=== PATIENT | male | born 1990 | race Caucasian/White ===

== ENCOUNTER 2020-04-14 18:58 | Emergency (ER) | payer OTHER ==
[2020-04-14 19:16] VITALS: RESP 16; TEMP 98
[2020-04-14] MEDS ORDERED: SODIUM CHLORIDE 0.9% 1,000 ML IV ONE (19:52)
--- NOTE | 2020-04-14 19:54 | ED ---
General Adult HPI - General Chief complaint: Recheck/Abnormal Lab/Rx Stated complaint: ETOH Time Seen by Provider: 04/14/20 19:12 Source: patient, EMS, RN notes reviewed, old records reviewed Mode of arrival: EMS Limitations: no limitations - History of Present Illness Initial comments: 30-year-old male sent from [facility] for evaluation of abdominal pain and vomiting. Patient has presented to [facility] for intake today for alcohol abuse. He admits to drinking 1/5 of vodka yesterday evening and had several drinksthis morning. He was found to have an alcohol level of 320. Apparently he had 2 episodes of vomiting although he is no longer complaining of nausea vomiting or abdominal pain. He does not appear intoxicated at the time my init ial evaluation. No depression, no suicidal or homicidal ideation. - Related Data Allergies Allergy/AdvReac Type Severity Reaction Status Date / Time Penicillins Allergy Rash/Hives Verified 04/14/20 19:17 Review of Systems ROS Statement: Those systems with pertinent positive or pertinent negative responses have been documented in the HPI. ROS Other: All systems not noted in ROS Statement are negative. Past Medical History Additional Past Medical History / Comment(s): pancreatitis 2011 History of Any Multi-Drug Resistant Organisms: None Reported Past Surgical History: No Surgical Hx Reported Smoking Status: Light tobacco smoker Past Alcohol Use History: Abuse Past Drug Use History: Marijuana General Exam Limitations: no limitations General appearance: alert, in no apparent distress Head exam: Present: atraumatic, normocephalic Eye exam: Present: normal appearance, PERRL ENT exam: Present: mucous membranes dry Neck exam: Present: normal inspection. Absent: tenderness, meningismus Respiratory exam: Present: normal lung sounds bilaterally. Absent: respiratory distress, wheezes Cardiovascular Exam: Present: regular rate, normal rhythm GI/Abdominal exam: Present: soft. Absent: distended, tenderness, guarding, rebound Extremities exam: Present: normal inspection, normal capillary refill Back exam: Present: normal inspection Neurological exam: Present: alert, oriented X3, CN II-XII intact. Absent: motor sensory deficit Psychiatric exam: Present: normal affect, normal mood Skin exam: Present: warm, dry, intact. Absent: cyanosis, diaphoretic Course Vital Signs 04/14/20 19:12 Temperature 98.0 F Pulse Rate 116 H Respiratory 16 Rate Blood Pressure 138/101 O2 Sat by Pulse 96 Oximetry Medical Decision Making - Medical Decision Making 30-year-old male with alcohol intoxication, requesting rehabilitation. He has a serum alcohol level of 300. He has a transaminitis consistent with alcoholic hepatitis. He has a negative lipase. He has a normal white blood cell count, hemoglobin is consistent with mild anemia. Patient eager to begin rehab. He will be discharged to the rehabilitation Center. Although his alcohol is 300 he is clinically sober. - Lab Data Result diagrams: 04/14/20 20:04 04/14/20 20:04 Lab Results 04/14/20 04/14/20 Range/Units 20:04 20:04 WBC 4.5 (3.8-10.6) k/uL RBC 5.43 (4.30-5.90) m/uL Hgb 12.4 L (13.0-17.5) gm/dL Hct 41.0 (39.0-53.0) % MCV 75.5 L (80.0-100.0) fL MCH 22.9 L (25.0-35.0) pg MCHC 30.4 L (31.0-37.0) g/dL RDW 21.1 H (11.5-15.5) % Plt Count 159 (150-450) k/uL Neutrophils % 60 % Lymphocytes % 28 % Monocytes % 5 % Eosinophils % 3 % Basophils % 1 % Neutrophils # 2.7 (1.3-7.7) k/uL Lymphocytes # 1.3 (1.0-4.8) k/uL Monocytes # 0.2 (0-1.0) k/uL Eosinophils # 0.2 (0-0.7) k/uL Basophils # 0.0 (0-0.2) k/uL Hypochromasia Slight Anisocytosis Moderate Microcytosis Moderate Sodium 142 (137-145) mmol/L Potassium 4.1 (3.5-5.1) mmol/L Chloride 105 (98-107) mmol/L Carbon Dioxide 22 (22-30) mmol/L Anion Gap 15 mmol/L BUN 10 (9-20) mg/dL Creatinine 0.86 (0.66-1.25) mg/dL Est GFR (CKD-EPI)AfAm >90 (>60 ml/min/1.73 sqM) Est GFR (CKD-EPI)NonAf >90 (>60 ml/min/1.73 sqM) Glucose 88 (74-99) mg/dL Calcium 9.1 (8.4-10.2) mg/dL Total Bilirubin 0.5 (0.2-1.3) mg/dL AST 166 H (17-59) U/L ALT 98 H (4-49) U/L Alkaline Phosphatase 54 (38-126) U/L Total Protein 7.9 (6.3-8.2) g/dL Albumin 4.7 (3.5-5.0) g/dL Amylase 48 (30-110) U/L Lipase 219 (23-300) U/L Serum Alcohol 301 H* mg/dL Disposition Clinical Impression: Vomiting, Alcohol abuse Disposition: OTHER INSTITUTION NOT DEFINED Condition: Fair Instructions (If sedation given, give patient instructions): Alcohol Intoxication (ED), Acute Nausea and Vomiting (ED) Is patient prescribed a controlled substance at d/c from ED?: No Referrals: Linda Zee DO [Primary Care Provider] - 1-2 days Time of Disposition: 20:43 - Out of Hospital Transfer - Req. Specs Out of Hospital Transfer - Requested Specifics: Other Non-Acute (discharged to [facility])
[2020-04-14 20:11] LABS: Anisocytosis Moderate; Basophils % (A) 1 %; Eosinophils # (A) 0.2 k/uL (0-0.7); Eosinophils % (A) 3 %; HGB 12.4 gm/dL (13.0-17.5); Hypochromasia Slight; Lymphocytes # (A) 1.3 k/uL (1.0-4.8); Lymphocytes % (A) 28 %; MCH 22.9 pg (25.0-35.0); MCHC 30.4 g/dL (31.0-37.0); MCV 75.5 fL (80.0-100.0); Mean Platelet Volume 6.9; Microcytosis Moderate; Monocytes # (A) 0.2 k/uL (0-1.0); Monocytes % (A) 5 %; Neutrophils # (A) 2.7 k/uL (1.3-7.7); Neutrophils % (A) 60 %; Platelet Count 159 k/uL (150-450); RBC 5.43 m/uL (4.30-5.90); RDW 21.1 % (11.5-15.5); WBC 4.5 k/uL (3.8-10.6)
[2020-04-14] MEDS ORDERED: ONDANSETRON 4 MG/2 ML VIAL IVP STA (20:11)
--- NOTE | 2020-04-14 20:18 | XR ---
EXAMINATION TYPE: XR KUB DATE OF EXAM: 04/14/2020 COMPARISON: NONE HISTORY: Abdominal pain TECHNIQUE: FINDINGS: 2 views upright show no sign of intestinal obstruction or pneumoperitoneum. Fecal pattern i s normal. Lung bases are clear. There are no pathologic calcifications over the kidneys. IMPRESSION: Nonacute abdomen.
[2020-04-14 20:21] LABS: ALT 98 U/L (4-49); AST 166 U/L (17-59); African American GFR (CKD) >90 (>60 ml/min/1.73 sqM); Albumin 4.7 g/dL (3.5-5.0); Alkaline Phosphatase 54 U/L (38-126); Amylase 48 U/L (30-110); Anion Gap 15 mmol/L; Blood Urea Nitrogen 10 mg/dL (9-20); Calcium 9.1 mg/dL (8.4-10.2); Carbon Dioxide 22 mmol/L (22-30); Chloride 105 mmol/L (98-107); Glucose 88 mg/dL (74-99); Lipase 219 U/L (23-300); Non-African American GFR(CKD) >90 (>60 ml/min/1.73 sqM); Potassium 4.1 mmol/L (3.5-5.1); Sodium 142 mmol/L (137-145); Total Bilirubin 0.5 mg/dL (0.2-1.3); Total Protein 7.9 g/dL (6.3-8.2)
[2020-04-14 20:35] LABS: Alcohol 301 mg/dL
[2020-04-14 21:05] VITALS: BP 129/87; PULSE 97
== END 2020-04-14 21:05 | disposition other institution (70) ==
LOC: EC 18:58
DX: F10.129 Alcohol abuse with intoxication, unspecified (principal); R74.01 Elevation of levels of liver transaminase levels; R11.10 Vomiting, unspecified; Y90.8 Blood alcohol level of 240 mg/100 ml or more; F17.210 Nicotine dependence, cigarettes, uncomplicated; Z88.0 Allergy status to penicillin
CPT/HCPCS: 36415; 80053; 82150; 83690; 85025; 74018; 99285; 96374; 96361; G0480; J2405; 80320

== ENCOUNTER 2020-04-17 06:03 | Observation (INO) | payer OTHER ==
[2020-04-17] MEDS ORDERED: LORazepam 2 MG/ML INJ IV PRN ×3 (06:07)
[2020-04-17] MEDS ORDERED: THIAMINE 100 MG/ML 2 ML VIAL IM ONE (06:15)
--- NOTE | 2020-04-17 06:42 | ED ---
Alcohol HPI - General Chief Complaint: Alcohol Stated Complaint: Hallucinations Time Seen by Provider: 04/17/20 06:07 Source: patient, EMS Mode of arrival: EMS Limitations: no limitations - History of Present Illness Initial Comments: 30yo male presenting for alcohol withdrawals. Patient states that he has been having withdrawals since he entered [facility]. He states that he has been seeing and hearing things intermittent that he believe are there. He was holding his blanket like a baby stating it needed to be cared for. he states he can see the blanket breathing. Staff noted patient making comments about voices and things that were not present. Patient states he has not had hallucinations to his knowledge in the past but has struggled with alcohol abuse most of his life. 7th time in rehab center. Patient/staff denies seizures, he admits to a dull headache and mild shaking. Patient very pleasant and does not appear in distress on arrival. - Related Data Home Medications Medication Instructions Recorded Confirmed Acetaminophen [Tylenol 8 Hour] 650 mg PO Q4H MDD 6 tabs 04/17/20 04/17/20 Gabriele/Mag+Zinc 334mg/134mg/5mg 2 tab PO TID PRN 04/17/20 04/17/20 Chlorpheniramine Maleate 4 mg PO Q4H PRN MDD 4 tabs 04/17/20 04/17/20 [Chlor-Trimeton] Citalopram Hydrobromide [CeleXA] 20 mg PO DAILY@0600 04/17/20 04/17/20 Ibuprofen [Motrin] 600 mg PO Q6HR PRN 04/17/20 04/17/20 LORazepam [Ativan] See Taper PO DIRECTED PRN 04/17/20 04/17/20 Ondansetron HCl [Zofran] 8 mg PO Q6H PRN 04/17/20 04/17/20 Tigan 200 mg IM Q6H PRN 04/17/20 04/17/20 Trimethobenzamide [Tigan] 300 mg PO Q6H PRN 04/17/20 04/17/20 Trimethobenzamide [Tigan] 300 mg RECTAL Q6H PRN 04/17/20 04/17/20 Zofran 2mg/Ml 4 mg IM Q6H PRN 04/17/20 04/17/20 buPROPion HCL [Wellbutrin SR] 200 mg PO BID@0600,1730 04/17/20 04/17/20 traZODone HCL [Desyrel] 100 mg PO HS 04/17/20 04/17/20 Allergies Allergy/AdvReac Type Severity Reaction Status Date / Time Penicillins Allergy Rash/Hives Verified 04/17/20 07:50 Review of Systems ROS Statement: Those systems with pertinent positive or pertinent negative responses have been documented in the HPI. ROS Other: All systems not noted in ROS Statement are negative. Past Medical History Additional Past Medical History / Comment(s): pancreatitis 2010 History of Any Multi-Drug Resistant Organisms: None Reported Past Surgical History: No Surgical Hx Reported Past Psychological History: ADD/ADHD, Anxiety, Depression Smoking Status: Light tobacco smoker Past Alcohol Use History: Abuse Past Drug Use History: Marijuana General Exam - General Exam Comments Initial Comments: General: The patient is awake and alert, in no distress Eye: Pupils are equal, round and reactive to light, extra-ocular movements are intact. No appreciated nystagmus. There is normal conjunctiva bilaterally. No signs of icterus. Ears, nose, mouth and throat: There are moist mucous membranes and no oral lesions. Neck: The neck is supple, there is no tenderness or JVD. Cardiovascular: There is a regular rate and rhythm. No murmur, rub or gallop is appreciated. Respiratory: Lungs are clear to auscultation, respirations are non-labored, breath sounds are equal. No wheezes, stridor, rales, or rhonchi. Gastrointestinal: Soft, non-distended, non-tender abdomen without masses or organomegaly noted. There is no rebound or guarding present. Musculoskeletal: Normal ROM, no tenderness. Strength 5/5. Sensation intact. Radial pulses equal bilaterally 2+. Neurological: A&O x 3. CN II-XII intact, There are no obvious motor or sensory deficits. Coordination appears grossly intact. Speech is normal. tremor of hands b/l mild. No appreciated ataxia. Skin: Skin is warm and dry and no rashes or lesions are noted. Psychiatric: Cooperative, very pleasant- he does state that the blanket is breathing and has eyes. Limitations: no limitations Course Vital Signs 04/17/20 04/17/20 04/17/20 06:05 07:09 08:27 Temperature 98.8 F 98.1 F 98.1 F Pulse Rate 95 92 89 Respiratory 18 14 14 Rate Blood Pressure 143/93 131/89 130/89 O2 Sat by Pulse 100 100 100 Oximetry 04/17/20 09:03 Temperature 97.9 F Pulse Rate 89 Respiratory 14 Rate Blood Pressure 139/89 O2 Sat by Pulse 100 Oximetry Medical Decision Making - Medical Decision Making 30yo with hx ETOH abuse. No ataxia, nystagmus on exam there are tremors, headache, nausea. Patient last drink 36 hours ago +. Patient case discussed [facility] attending who recommended admission on [facility] for monitoring. - Lab Data Result diagrams: 04/17/20 06:33 04/17/20 06:33 Lab Results 04/17/20 04/17/20 04/17/20 Range/Units 06:33 06:33 06:33 WBC 3.9 (3.8-10.6) k/uL RBC 4.49 (4.30-5.90) m/uL Hgb 11.0 L (13.0-17.5) gm/dL Hct 34.9 L (39.0-53.0) % MCV 77.8 L (80.0-100.0) fL MCH 24.4 L (25.0-35.0) pg MCHC 31.4 (31.0-37.0) g/dL RDW 21.2 H (11.5-15.5) % Plt Count 139 L (150-450) k/uL MPV 8.2 Neutrophils % 59 % Lymphocytes % 27 % Monocytes % 7 % Eosinophils % 4 % Basophils % 0 % Neutrophils # 2.3 (1.3-7.7) k/uL Lymphocytes # 1.1 (1.0-4.8) k/uL Monocytes # 0.3 (0-1.0) k/uL Eosinophils # 0.1 (0-0.7) k/uL Basophils # 0.0 (0-0.2) k/uL Anisocytosis Moderate Microcytosis Moderate Sodium 137 (137-145) mmol/L Potassium 3.3 L (3.5-5.1) mmol/L Chloride 100 (98-107) mmol/L Carbon Dioxide 27 (22-30) mmol/L Anion Gap 10 mmol/L BUN 6 L (9-20) mg/dL Creatinine 1.02 (0.66-1.25) mg/dL Est GFR (CKD-EPI)AfAm >90 (>60 ml/min/1.73 sqM) Est GFR (CKD-EPI)NonAf >90 (>60 ml/min/1.73 sqM) Glucose 89 (74-99) mg/dL Calcium 9.4 (8.4-10.2) mg/dL Magnesium (1.6-2.3) mg/dL AST 74 H (17-59) U/L ALT 67 H (4-49) U/L Urine Color Colorless Urine Appearance Clear (Clear) Urine pH 7.0 (5.0-8.0) Ur Specific Mck[place] 1.002 (1.001-1.035) Urine Protein Negative (Negative) Urine Glucose (UA) Negative (Negative) Urine Ketones Negative (Negative) Urine Blood Negative (Negative) Urine Nitrite Negative (Negative) Urine Bilirubin Negative (Negative) Urine Urobilinogen <2.0 (<2.0) mg/dL Ur Leukocyte Esterase Negative (Negative) Urine Opiates Screen Not Detected (NotDetected) Ur Oxycodone Screen Not Detected (NotDetected) Urine Methadone Screen Not Detected (NotDetected) Ur Propoxyphene Screen Not Detected (NotDetected) Ur Barbiturates Screen Not Detected (NotDetected) U Tricyclic Antidepress Not Detected (NotDetected) Ur Phencyclidine Scrn Not Detected (NotDetected) Ur Amphetamines Screen Not Detected (NotDetected) U Methamphetamines Scrn Not Detected (NotDetected) U Benzodiazepines Scrn Detected H (NotDetected) Urine Cocaine Screen Not Detected (NotDetected) U Marijuana (THC) Screen Not Detected (NotDetected) Serum Alcohol <10 mg/dL 04/17/20 Range/Units 06:33 WBC (3.8-10.6) k/uL RBC (4.30-5.90) m/uL Hgb (13.0-17.5) gm/dL Hct (39.0-53.0) % MCV (80.0-100.0) fL MCH (25.0-35.0) pg MCHC (31.0-37.0) g/dL RDW (11.5-15.5) % Plt Count (150-450) k/uL MPV Neutrophils % % Lymphocytes % % Monocytes % % Eosinophils % % Basophils % % Neutrophils # (1.3-7.7) k/uL Lymphocytes # (1.0-4.8) k/uL Monocytes # (0-1.0) k/uL Eosinophils # (0-0.7) k/uL Basophils # (0-0.2) k/uL Anisocytosis Microcytosis Sodium (137-145) mmol/L Potassium (3.5-5.1) mmol/L Chloride (98-107) mmol/L Carbon Dioxide (22-30) mmol/L Anion Gap mmol/L BUN (9-20) mg/dL Creatinine (0.66-1.25) mg/dL Est GFR (CKD-EPI)AfAm (>60 ml/min/1.73 sqM) Est GFR (CKD-EPI)NonAf (>60 ml/min/1.73 sqM) Glucose (74-99) mg/dL Calcium (8.4-10.2) mg/dL Magnesium 1.8 (1.6-2.3) mg/dL AST (17-59) U/L ALT (4-49) U/L Urine Color Urine Appearance (Clear) Urine pH (5.0-8.0) Ur Specific Mck[place] (1.001-1.035) Urine Protein (Negative) Urine Glucose (UA) (Negative) Urine Ketones (Negative) Urine Blood (Negative) Urine Nitrite (Negative) Urine Bilirubin (Negative) Urine Urobilinogen (<2.0) mg/dL Ur Leukocyte Esterase (Negative) Urine Opiates Screen (NotDetected) Ur Oxycodone Screen (NotDetected) Urine Methadone Screen (NotDetected) Ur Propoxyphene Screen (NotDetected) Ur Barbiturates Screen (NotDetected) U Tricyclic Antidepress (NotDetected) Ur Phencyclidine Scrn (NotDetected) Ur Amphetamines Screen (NotDetected) U Methamphetamines Scrn (NotDetected) U Benzodiazepines Scrn (NotDetected) Urine Cocaine Screen (NotDetected) U Marijuana (THC) Screen (NotDetected) Serum Alcohol mg/dL Disposition Clinical Impression: Hallucinations due to alcohol Disposition: ADMITTED IP TO THIS HOSP Condition: Stable Is patient prescribed a controlled substance at d/c from ED?: No Referrals: Linda Zee DO [Primary Care Provider] - 1-2 days Time of Disposition: 08:34 Decision to Admit Reason: Admit from EC Decision Date: 04/17/20 Decision Time: 08:34
[2020-04-17 07:02] LABS: Anisocytosis Moderate; Basophils % (A) 0 %; Eosinophils # (A) 0.1 k/uL (0-0.7); Eosinophils % (A) 4 %; HCT 34.9 % (39.0-53.0); Lymphocytes # (A) 1.1 k/uL (1.0-4.8); Lymphocytes % (A) 27 %; MCH 24.4 pg (25.0-35.0); MCHC 31.4 g/dL (31.0-37.0); MCV 77.8 fL (80.0-100.0); Mean Platelet Volume 8.2; Microcytosis Moderate; Monocytes # (A) 0.3 k/uL (0-1.0); Monocytes % (A) 7 %; Neutrophils # (A) 2.3 k/uL (1.3-7.7); Neutrophils % (A) 59 %; Platelet Count 139 k/uL (150-450); RBC 4.49 m/uL (4.30-5.90); RDW 21.2 % (11.5-15.5); WBC 3.9 k/uL (3.8-10.6)
[2020-04-17 07:17] LABS: Appearance,Urine Clear (Clear); Bilirubin,Urine Negative (Negative); Blood,Urine Negative (Negative); Color,Urine Colorless; Glucose,Urine (UA) Negative (Negative); Ketones,Urine Negative (Negative); Leukocyte Esterase,Urine Negative (Negative); Nitrite,Urine Negative (Negative); Protein,Urine Negative (Negative); Specific Gravity,Urine 1.002 (1.001-1.035); Urobilinogen,Urine <2.0 mg/dL (<2.0)
[2020-04-17 07:32] LABS: ALT 67 U/L (4-49); AST 74 U/L (17-59); African American GFR (CKD) >90 (>60 ml/min/1.73 sqM); Alcohol <10 mg/dL; Anion Gap 10 mmol/L; Blood Urea Nitrogen 6 mg/dL (9-20); Calcium 9.4 mg/dL (8.4-10.2); Carbon Dioxide 27 mmol/L (22-30); Chloride 100 mmol/L (98-107); Glucose 89 mg/dL (74-99); Non-African American GFR(CKD) >90 (>60 ml/min/1.73 sqM); Potassium 3.3 mmol/L (3.5-5.1); Sodium 137 mmol/L (137-145)
[2020-04-17 07:52] LABS: Amphetamine Screen,Urine Not Detected (NotDetected); Barbiturate Screen,Urine Not Detected (NotDetected); Benzodiazepines Screen,Urine Detected (NotDetected); Cocaine Screen,Urine Not Detected (NotDetected); Methadone Screen, Urine Not Detected (NotDetected); Opiate Screen,Urine Not Detected (NotDetected); Oxycodone Screen, Urine Not Detected (NotDetected); Phencyclidine Screen,Urine Not Detected (NotDetected); Tricyclic Antidepressant,Urine Not Detected (NotDetected); Urn Cannabinoid Scrn Not Detected (NotDetected)
[2020-04-17] MEDS ORDERED: NALOXONE 0.4 MG/ML 1 ML VIAL IV PRN (08:33)
[2020-04-17] MEDS ORDERED: NICOTINE 14MG/24HR PATCH TRANSDERM STA (08:35)
[2020-04-17] MEDS: SODIUM CHLORIDE 0.9% 1,000 ML IV SCH (08:59)
[2020-04-17] MEDS ORDERED: POTASSIUM CHLORIDE ER 20 MEQ TAB.ER PO STA (11:22)
[2020-04-17] MEDS ORDERED: MELATONIN 3 MG TABLET PO PRN (14:20)
[2020-04-17] MEDS ORDERED: ACETAMINOPHEN TAB 325 MG TAB PO PRN (14:20)
[2020-04-17] MEDS ORDERED: ONDANSETRON 4 MG/2 ML VIAL IVP PRN (14:20)
[2020-04-17] MEDS ORDERED: NICOTINE POLACRILEX 2 MG GUM BUCCAL PRN (15:34)
--- NOTE | 2020-04-17 15:37 | P.HPIM ---
History of Present Illness H&P Date: 04/17/20 Chief Complaint: hallucinations Patient is a 30-year-old male with history of alcohol abuse consuming approximately one time per day, mental health disorder, and prior pancreatitis who was brought into the hospital from [facility] secondary to hallucinations. In the ER he underwent an extensive evaluation. On arrival his vital signs were within normal limits. Laboratory analysis showed hemoglobin 11, platelets 139, potassium 3.3, AST 74, ALT 67, total bilirubin 0.7. Urine showed screen was positive for benzodiazepines. There is concern for his hallucinations being related to alcohol withdrawal and he was subsequently placed in observation. Patient seen and examined in the ER. He reports that he was brought here from [facility] due to hallucinations. I asked him to explain when he was seen in hearing and he refuses to do so saying "it is so much" stuff, he would never believe it. He denies any thoughts to harm himself or others. He denies any thoughts of suicide. He reports that his last drink was approximately 4 days ago. He states he was drinking 1 pint daily. He has been in rehab multiple times. He states that he is having less hallucinations today. He believes his hallucinations are due to whatever medication and giving him at [facility]. He denies any chest pain, shortness of breath, tremors, fevers. He thinks he is in [facility] on the 50th floor and that it is 2020. Review of Systems Pertinent positives and negatives as discussed in HPI, a complete review of systems was performed and all other systems are negative. Past Medical History Additional Past Medical History / Comment(s): pancreatitis 2010 History of Any Multi-Drug Resistant Organisms: None Reported Past Surgical History: No Surgical Hx Reported Past Psychological History: ADD/ADHD, Anxiety, Depression Smoking Status: Light tobacco smoker, Vaper Past Alcohol Use History: Abuse Past Drug Use History: Marijuana - Past Family History Mother Family Medical History: No Reported History Medications and Allergies Home Medications Medication Instructions Recorded Confirmed Type Acetaminophen [Tylenol 8 Hour] 650 mg PO Q4H MDD 6 tabs 04/17/20 04/17/20 History Gabriele/Mag+Zinc 334mg/134mg/5mg 2 tab PO TID PRN 04/17/20 04/17/20 History Chlorpheniramine Maleate 4 mg PO Q4H PRN MDD 4 tabs 04/17/20 04/17/20 History [Chlor-Trimeton] Citalopram Hydrobromide [CeleXA] 20 mg PO DAILY@0600 04/17/20 04/17/20 History Ibuprofen [Motrin] 600 mg PO Q6HR PRN 04/17/20 04/17/20 History LORazepam [Ativan] See Taper PO DIRECTED PRN 04/17/20 04/17/20 History Ondansetron HCl [Zofran] 8 mg PO Q6H PRN 04/17/20 04/17/20 History Tigan 200 mg IM Q6H PRN 04/17/20 04/17/20 History Trimethobenzamide [Tigan] 300 mg PO Q6H PRN 04/17/20 04/17/20 History Trimethobenzamide [Tigan] 300 mg RECTAL Q6H PRN 04/17/20 04/17/20 History Zofran 2mg/Ml 4 mg IM Q6H PRN 04/17/20 04/17/20 History buPROPion HCL [Wellbutrin SR] 200 mg PO BID@0600,1730 04/17/20 04/17/20 History traZODone HCL [Desyrel] 100 mg PO HS 04/17/20 04/17/20 History Allergies Allergy/AdvReac Type Severity Reaction Status Date / Time Penicillins Allergy Rash/Hives Verified 04/17/20 07:50 Physical Exam Osteopathic Statement: *. No significant issues noted on an osteopathic structural exam other than those noted in the History and Physical/Consult. Vitals: Vital Signs Temp Pulse Resp BP Pulse Ox 04/17/20 14:05 97.9 F 88 14 148/91 100 04/17/20 12:52 98.1 F 91 14 122/91 100 04/17/20 12:16 88 14 142/89 99 04/17/20 11:46 97.9 F 88 14 140/91 99 04/17/20 10:49 98.1 F 88 14 139/91 100 04/17/20 10:00 98.1 F 84 14 138/89 100 04/17/20 09:03 97.9 F 89 14 139/89 100 04/17/20 08:27 98.1 F 89 14 130/89 100 04/17/20 07:09 98.1 F 92 14 131/89 100 04/17/20 06:05 98.8 F 95 18 143/93 100 Intake and Output 04/16/20 04/17/20 04/17/20 22:59 06:59 14:59 Other: Weight 65.771 kg General: non toxic, no distress, appears older than stated age Derm: multiple tattoos, warm, dry Head: atraumatic, normocephalic, symmetric Eyes: EOMI, no lid lag, anicteric sclera, pupils equal round reactive to light ENT: Nose and ears atraumatic, no thrush, no pharyngeal erythema Neck: No thyromegaly, no cervical lymphadenopathy, trachea midline, supple Mouth: no lip lesion, mucus membranes moist Cardiovascular: S1S2 reg, no murmur, positive posterior tibial pulse bilateral, no edema, capillary refill less than 2 seconds Lungs: clear to ascultation bilateral, no ronchi, no rales, no wheeze, no accessory muscle use Abdominal: soft, nontender to palpation, no guarding, no appreciable organomegaly, normal bowel sounds Ext: no gross muscle atrophy, muscle strength muscle strength 5 out of 5 in all 4 extremities, no contractures Neuro: CN II-XI grossly intact, light touch intact all 4 extremities, finger to nose within normal limits, Psych: Alert to self. He thinks he has an Haresh appear, and 2020, tangential thinking, acute thinking there someone outside of his room, answers correctly that he would take a letter on the ground outside of the mailbox and put it in the mail box. Results CBC & Chem 7: 04/17/20 06:33 04/17/20 06:33 Labs: Abnormal Lab Results - Last 24 Hours (Table) 04/17/20 04/17/20 04/17/20 Range/Units 06:33 06:33 06:33 Hgb 11.0 L (13.0-17.5) gm/dL Hct 34.9 L (39.0-53.0) % MCV 77.8 L (80.0-100.0) fL MCH 24.4 L (25.0-35.0) pg RDW 21.2 H (11.5-15.5) % Plt Count 139 L (150-450) k/uL Potassium 3.3 L (3.5-5.1) mmol/L BUN 6 L (9-20) mg/dL AST 74 H (17-59) U/L ALT 67 H (4-49) U/L U Benzodiazepines Scrn Detected H (NotDetected) Assessment and Plan Assessment: Hallucinations -Undetermined cause -Hold Celexa, Wellbutrin, trazodone -Psych consult -semiautomatic stitcher operator at bedside secondary to impulsive behavior - thiamine for possible wernickes Alcohol abuse with possible withdrawal -Continue with [facility] protocol -Thiamine IV piggyback -Folic acid Thrombocytopenia -Suspect very to alcohol use - follow CBC Transaminitis - mildly likely due to ETOH - recheck in AM Nicotine abuse - cessation - replacement Anemia, undetermined etiology - outpatient evaluation if CBC stable in AM The patient is placed in observation with an anticipated less than 2 midnight stay for evaluation of Hallucinations. DVT prophylaxis: SCDs Discussed with: patient, nursing, ED physician Anticipated discharge date: in AM Anticipated discharge place: undetermined A total of 60 minutes was spent on the care of this complex patient more than 50% of the time was spent in counseling and care coordination.
[2020-04-17] MEDS ORDERED: HALOPERIDOL LACTATE 5 MG/ML 1 ML VIAL IM PRN ×2 (17:06)
[2020-04-17] MEDS ORDERED: THIAMINE 100 MG TAB PO SCH (17:30)
[2020-04-18] MEDS: FOLIC ACID 1 MG TAB PO SCH ×2 (00:02→08:13)
[2020-04-18 06:54] LABS: Anisocytosis Moderate; HCT 37.9 % (39.0-53.0); HGB 12.1 gm/dL (13.0-17.5); Hypochromasia Slight; MCH 25.2 pg (25.0-35.0); MCHC 31.9 g/dL (31.0-37.0); MCV 79.1 fL (80.0-100.0); Microcytosis Moderate; Platelet Count 163 k/uL (150-450); RBC 4.78 m/uL (4.30-5.90); RDW 21.1 % (11.5-15.5); WBC 3.8 k/uL (3.8-10.6)
[2020-04-18] MEDS: SODIUM CHLORIDE 0.9% 1,000 ML IV SCH ×3 (08:12→17:38)
[2020-04-18] MEDS: THIAMINE 100 MG/ML 2 ML VIAL IVP SCH (08:13)
[2020-04-18 09:29] LABS: INR 0.95 (0.90-1.11); Prothrombin Time 10.3 sec (9.9-11.9)
[2020-04-18 09:39] LABS: African American GFR (CKD) 117.4 (60.0-200.0); Albumin 4.2 g/dL (3.80-4.90); Albumin/Globulin Ratio 1.83 (1.60-3.17); Anion Gap 7.3 mmol/L (4.00-12.00); Calcium 9.3 mg/dL (8.7-10.3); Carbon Dioxide 25.7 mmol/L (21.6-31.8); Globulin 2.3 g/dL (1.6-3.3); Non-African American GFR(CKD) 101.3 (60.0-200.0); Potassium 4.5 mmol/L (3.5-5.5); Total Bilirubin 0.5 mg/dL (0.3-1.2); Total Protein 6.5 g/dL (6.2-8.2)
--- NOTE | 2020-04-18 09:45 | P.PN ---
Progress Note - Text Progress Note Date: 04/18/20 medically stable for discharge. Awaiting psych eval.
[2020-04-18] MEDS ORDERED: traZODone HCL 100 MG TAB PO PRN (13:29)
--- NOTE | 2020-04-18 13:30 | P.CN ---
Psychiatric Consult - . Consult date: 04/18/20 Consult:: IDENTIFYING DATA: This patient is a , currently unemployed, 30-year-old male admitted for hallucinations. HISTORY OF PRESENT ILLNESS: The patient presented to the hospital on 04/17/2020 from [place] where he was receiving treatment for alcohol use disorder. The patient reports that he was in [place] for 5 days but on the second day he began experiencing hallucinations. He reports that on the second day, he received Ativan to help him with withdrawal symptoms and during that time he began to experience increasing visual and auditory hallucinations. He described that the hallucinations were initially present only around bedtime when the lights were off but progressively got worse and were present even during the day. He describes them as being frightening and evil-looking. He also endorsed visual hallucinations of his family members. He reports that he would have conversations with people who weren't present. He denies any command type or persecutory-type auditory hallucinations. He denies any paranoia or delusions. He reports that he has not express any hallucinations over the past 2 days. In regards to history of psychotic symptoms, the patient reports the first time he began expressing psychotic symptoms ever. He does report a significant history of depression, anxiety, and attention deficit hyperactivity disorder for which he is prescribed Wellbutrin and trazodone. He reports he takes the medications regularly. He was reports being prescribed adderall which he states he last used weeks ago. She denies any current suicidal or homicidal ideation, intention, and/or plan. He reports no prior attempts at suicide. He is currently reporting no significant symptoms of depression at this time. In regards to other mood symptoms, the patient does not endorse any history of merly. He reports no increased goal-directed behavior, grandiosity, impulsivity, or pressured speech. He does report a significant history of substance use. She states that since the age of 21, he has been engaging in almost daily heavy alcohol use. He reported drinking between a pint to a fifth of vodka daily. He reports he uses of Vape daily. He denies any illicit drug use. He reports using marijuana occasionally with the last use being 2 weeks ago. PAST PSYCHIATRIC HISTORY: Patient has a a history of depression, anxiety, ADHD. He is only able to recall his Wellbutrin, trazodone, and Celexa. He states that he was also prescribed Adderall. Patient denies any previous psychiatric hospitalizations. Patient denies any outpatient psychiatric follow-up. He reports he is prescribed his medications through his primary care provider. Patient denies any history of suicide attempts in the past. PAST MEDICAL HISTORY: Pancreatitis in 2010. ALLERGIES: as per EMR. CHEMICAL DEPENDENCY HISTORY: as per HPI. FAMILY PSYCHIATRIC/SUBSTANCE USE HISTORY: Motherdepression. SOCIAL HISTORY: Patient is currently living in [place], [place] with his and 3 children. He also has a friend/roommate living with them as well. He graduated with a bachelor's degree in biomedical engineering. 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 He has 1 child together with his current . She has 2 children from a previous marriage. MENTAL STATUS EXAM: General Appearance: Patient appears to be stated age is alert, pleasant, and cooperative. Patient appears to have fair hygiene and grooming wearing hospital gown with fair eye contact. Noticeable tattoos on his torso. Behavior: Patient is calmly lying in bed without any agitated behavior. Patient became appropriately tearful when discussing his hallucinations. Speech: Patient's speech is fluent and nonpressured. Mood/Affect: Patient reports their mood is "alright", affect is congruent and euthymic. Suicidality/Homicidality: Patient denies having any suicidal or homicidal ideation intent or plan. Perceptions: Patient denies any visual hallucinations and denies any auditory hallucinations Though content/process: There is no evidence of any delusional thought content and thought process is linear and goal-directed. Memory and concentration: AOX3, grossly intact for the purposes of this session. Can spell "WORLD" backwards Judgment and insight: Fair IMPRESSIONS: Psychosis, unspecified suspect secondary to alcohol withdrawal Major depressive disorder PLAN: -At this time patient DOES NOT meet criteria for inpatient psychiatric admission. -Would recommend the following medication changes/additions: After discussion with the patient, he would like to start antipsychotic medication due to his fear of these hallucinations. The risks, benefits, and alternatives of the medication were discussed with the patient in detail. We discussed that he should follow up with his outpatient physician regarding if this medication should be continued or not. We will start Risperdal 0.5 mg by mouth twice daily for hallucinations Recommend holding Wellbutrin at this time as the patient is not endorsing any significant depression and the dopaminergic action of Wellbutrin may contribute to his hallucinations. May continue Celexa 20 mg by mouth daily for depression/anxiety May continue trazodone 100 mg by mouth as needed at bedtime for depression/insomnia -Psychoeducation and supportive therapy provided to patient. Risks and benefits of pharmacological treatment versus the risks and benefits of nontreatment weight and discussed. Informed consent discussion held. Common side effects of psychotropics discussed such as, but not limited to headache, GI disturbance, sexual dysfunction, movement disorders, sedation, and orthostatic hypotension. Life threatening and blackbox warnings of prescribed medications also discussed. Potential risks of operating a vehicle or heavy machinery discussed with patient at length. Advised on importance of compliance and a reliable and responsible manner. Patient advised to review FDA consumer labeling of all medications prior to taking. Patient verbalized understanding of potential risks, and agrees with current treatment plan. Patient advised to medically contact physician/emergency personnel if any acute changes in condition occur. -Psychiatry will sign off at this point, please contact with any questions. 04/18/20 13:26
--- NOTE | 2020-04-18 18:18 | P.PN ---
Subjective Progress Note Date: 04/18/20 (delayed charting seen at 0845) Principal diagnosis: hallucinations Patient is a 30-year-old male with history of alcohol abuse consuming approximately one time per day, mental health disorder, and prior pancreatitis who was brought into the hospital from [place] secondary to hallucinations. In the ER he underwent an extensive evaluation. On arrival his vital signs were within normal limits. Laboratory analysis showed hemoglobin 11, platelets 139, potassium 3.3, AST 74, ALT 67, total bilirubin 0.7. Urine showed screen was positive for benzodiazepines. There is concern for his hallucinations being related to alcohol withdrawal and he was subsequently placed in observation. He was given Ativan however his hallucinations worsened. He was given a trial of Haldol which seemed to improve his hallucinations. Request was made for psychiatry consultation. On the morning of 04/18 his hallucinations seem to be improved. Patient seen and examined at bedside. He denies any chest pain, shortness breath, nausea, vomiting, headache he still having some tremors. His anxiety is okay. He does not want to go back to [place]. General: non toxic, no distress, appears at stated age Derm: warm, dry, + diaphoresis Head: atraumatic, normocephalic, symmetric Eyes: EOMI, no lid lag, anicteric sclera Mouth: no lip lesion, mucus membranes moist Cardiovascular: S1S2 reg, no murmur, positive posterior tibial pulse bilateral, Lungs: CTA bilateral, no rhonchi, no rales , no accessory muscle use Abdominal: soft, nontender to palpation, no guarding, no appreciable organomegaly Ext: no gross muscle atrophy, no edema, no contractures Neuro: CN II-XI grossly intact, no focal neuro deficits, + asterixis Psych: Alert and oriented 3, appropriate affect Hallucinations -Psychiatry recommendations: likely related to alcohol withdrawal. They have recommended adding Risperdal to his Celexa and trazodone. He has not meet requirements for inpatient psych hospitalization. Will monitor overnight for signs of worsening hallucinations, if improved will discharge home in a.m. Alcohol abuse with possible withdrawal -Continue with [facility] protocol -Thiamine IV piggyback -Folic acid Thrombocytopenia -Suspect very to alcohol use - follow CBC Transaminitis, improving - mildly likely due to ETOH - recheck in AM Nicotine abuse - cessation - replacement Anemia, undetermined etiology - outpatient evaluation if CBC stable in AM Discussed with: patient, nursing, Anticipated discharge date: in AM Anticipated discharge place: undetermined A total of 25 minutes was spent on the care of this complex patient more than 50% of the time was spent in counseling and care coordination. Objective - Vital Signs Vital signs: Vital Signs Temp 98.3 F 04/18/20 12:56 Pulse 73 04/18/20 12:56 Resp 18 04/18/20 12:56 BP 125/81 04/18/20 12:56 Pulse Ox 100 04/18/20 12:56 Intake & Output 04/17/20 04/18/20 04/18/20 18:59 06:59 18:59 Intake Total 700 Balance 700 Weight 65.771 kg Intake: Intake, IV Titration 200 Amount Sodium Chloride 0.9% 1, 200 000 ml @ 100 mls/hr IV . Q10H [facility] Rx#:[id number] Oral 500 Other: # Voids 3 2 - Labs CBC & Chem 7: 04/18/20 06:40 04/18/20 06:40 Labs: Abnormal Lab Results - Last 24 Hours (Table) 04/18/20 04/18/20 Range/Units 06:40 06:40 Hgb 12.1 L (13.0-17.5) gm/dL Hct 37.9 L (39.0-53.0) % MCV 79.1 L (80.0-100.0) fL RDW 21.1 H (11.5-15.5) % BUN 6.0 L (9.0-27.0) mg/dL BUN/Creatinine Ratio 6.00 L (12.00-20.00) Ratio Glucose 135 H (70-110) mg/dL AST 67 H (14-35) U/L ALT 64 H (10-49) U/L
[2020-04-18 20:31] VITALS: RESP 16
[2020-04-18] MEDS: risperiDONE 0.5 MG TAB PO SCH (20:45)
[2020-04-19 05:16] VITALS: BP 120/77; PULSE 64; TEMP 98.1
[2020-04-19] MEDS: SODIUM CHLORIDE 0.9% 1,000 ML IV SCH (05:22)
[2020-04-19] MEDS: risperiDONE 0.5 MG TAB PO SCH (07:27)
[2020-04-19] MEDS: FOLIC ACID 1 MG TAB PO SCH (07:27)
[2020-04-19] MEDS: THIAMINE 100 MG/ML 2 ML VIAL IVP SCH (07:27)
[2020-04-19] MEDS ORDERED: CITALOPRAM HYDROBROMIDE 20 MG TAB PO SCH (09:00)
--- NOTE | 2020-04-19 20:23 | P.DS ---
Providers Date of admission: 04/17/20 11:18 Expected date of discharge: 04/19/20 Attending physician: Myesha Michele DO Consults: 04/17/20 14:19 Consult Physician Routine Consulting Provider: Hugh Smart Reason/Comments: hallucinations Do you want consulting provider notified?: Yes Primary care physician: Linda Zee Hospital Course: Discharge Diagnosis: Hallucinations Acute alcohol abuse with withdrawal Pancytopenia Transaminitis Nicotine abuse Anemia Hospital Course: Patient is a 30-year-old male with history of alcohol abuse consuming approximately one time per day, mental health disorder, and prior pancreatitis who was brought into the hospital from [place] secondary to hallucinations. In the ER he underwent an extensive evaluation. On arrival his vital signs were within normal limits. Laboratory analysis showed hemoglobin 11, platelets 139, potassium 3.3, AST 74, ALT 67, total bilirubin 0.7. Urine showed screen was positive for benzodiazepines. There is concern for his hallucinations being related to alcohol withdrawal and he was subsequently placed in observation. He was given Ativan however his hallucinations worsened. He was given a trial of Haldol which seemed to improve his hallucinations. Request was made for psychiatry consultation. On the morning of 04/18 his hallucinations seem to be improved. He was seen by psychiatry who felt his hallucinations are likely related to alcohol withdrawal but due to their distressing nature they proceeded with treating these. They recommended adding Risperdal to Celexa and trazodone, discontinuing his Wellbutrin as he is not having any signs of significant depression. He does not meet requirements for inpatient psych hospitalization. He was monitored overnight after initiation of the Risperdal and did well without hallucinations. He was discharged in stable condition back to [place]. I've asked him to add Ativan and benzodiazepines to his medication intolerance list. Patient should follow with his PCP after discharge from [place]. Patient seen and examined at bedside. No additional hallucinations, feeling well, no chest pain, no shortness of breath, no tremors. Vital signs reviewed and stable. General: non toxic, no distress, appears at stated age Derm: warm, dry Head: atraumatic, normocephalic, symmetric Eyes: EOMI, no lid lag, anicteric sclera Mouth: no lip lesion, mucus membranes moist Cardiovascular: S1S2 reg, no murmur, positive posterior tibial pulse bilateral, Lungs: CTA bilateral, no rhonchi, no rales , no accessory muscle use Abdominal: soft, nontender to palpation, no guarding, no appreciable organomegaly Ext: no gross muscle atrophy, no edema, no contractures Neuro: CN II-XI grossly intact, no focal neuro deficits Psych: Alert, oriented, appropriate affect A total of 25 minutes of time were spent preparing this complex discharge summary . Patient Condition at Discharge: Stable Plan - Discharge Summary New Discharge Prescriptions: New risperiDONE [RisperDAL] 0.5 mg PO BID #60 tab Continue Gabriele/Mag+Zinc 334mg/134mg/5mg 2 tab PO TID PRN PRN Reason: supplement Ibuprofen [Motrin] 600 mg PO Q6HR PRN PRN Reason: Pain Or Fever > 100.5 Acetaminophen [Tylenol 8 Hour] 650 mg PO Q4H MDD 6 tabs Ondansetron HCl [Zofran] 8 mg PO Q6H PRN PRN Reason: Nausea And Vomiting Citalopram Hydrobromide [CeleXA] 20 mg PO DAILY@0600 traZODone HCL [Desyrel] 100 mg PO HS Discontinued Chlorpheniramine Maleate [Chlor-Trimeton] 4 mg PO Q4H PRN MDD 4 tabs PRN Reason: Allergy Symptoms Tigan 200 mg IM Q6H PRN PRN Reason: Nausea And Vomiting Trimethobenzamide [Tigan] 300 mg RECTAL Q6H PRN PRN Reason: Nausea And Vomiting Zofran 2mg/Ml 4 mg IM Q6H PRN PRN Reason: Nausea And Vomiting LORazepam [Ativan] See Taper PO DIRECTED PRN PRN Reason: SEE LABEL COMMENTS Trimethobenzamide [Tigan] 300 mg PO Q6H PRN PRN Reason: Nausea And Vomiting buPROPion HCL [Wellbutrin SR] 200 mg PO BID@0600,1730 Discharge Medication List Acetaminophen [Tylenol 8 Hour] 650 mg PO Q4H MDD 6 tabs 04/17/20 [History] Gabriele/Mag+Zinc 334mg/134mg/5mg 2 tab PO TID PRN 04/17/20 [History] Citalopram Hydrobromide [CeleXA] 20 mg PO DAILY@0600 04/17/20 [History] Ibuprofen [Motrin] 600 mg PO Q6HR PRN 04/17/20 [History] Ondansetron HCl [Zofran] 8 mg PO Q6H PRN 04/17/20 [History] traZODone HCL [Desyrel] 100 mg PO HS 04/17/20 [History] risperiDONE [RisperDAL] 0.5 mg PO BID #60 tab 04/19/20 [Rx] Follow up Appointment(s)/Referral(s): Linda Zee DO [Primary Care Provider] - 1-2 days Patient Instructions/Handouts: Abuse of Alcohol (DC), Alcohol Withdrawal (DC) Activity/Diet/Wound Care/Special Instructions: Activity: as tolerated Diet: Regular Special Instructions: avoid ativan/Benzo Discharge Disposition: HOME SELF-CARE
== END 2020-04-19 10:51 | disposition home or self-care (01) ==
LOC: EC 06:03 → 6NMEDSUR 11:18
PROVIDERS: ADMIT Internal Medicine; ATTEND Internal Medicine
DX: R44.0 Auditory hallucinations (principal); R44.1 Visual hallucinations; F10.239 Alcohol dependence with withdrawal, unspecified; D61.818 Other pancytopenia; R74.01 Elevation of levels of liver transaminase levels; F17.200 Nicotine dependence, unspecified, uncomplicated; F90.9 Attention-deficit hyperactivity disorder, unspecified type; F41.9 Anxiety disorder, unspecified; F32.9 Major depressive disorder, single episode, unspecified; G47.00 Insomnia, unspecified; F29 Unspecified psychosis not due to a substance or known physiological condition; R45.87 Impulsiveness; Z79.899 Other long term (current) drug therapy; Z79.1 Long term (current) use of non-steroidal anti-inflammatories (NSAID); Z88.0 Allergy status to penicillin; Z87.19 Personal history of other diseases of the digestive system; Z56.0 Unemployment, unspecified; Z81.8 Family history of other mental and behavioral disorders
CPT/HCPCS: 96376 ×2; 96361 ×4; 96375; 96372; 96374; 99285; 36415; 93005; 80053; 80048; 82247; 83735 ×2; 84450; 84460; 85025; 85027; 85610; 81003; 80306; G0378 ×3; G0480; S4990; J2060; J1630; J3411 ×3; 80320